=== PATIENT | female | born 1965 | race American Indian/Alaskan Native ===

== ENCOUNTER 2020-01-14 12:35 | Outpatient (CLI) | payer OTHER ==
--- NOTE | 2020-01-14 15:11 | Mammography Report ---
DIGITAL RIGHT DIAGNOSTIC MAMMOGRAM WITH CAD, WITHOUT TOMOSYNTHESIS 01/14/2020 INDICATION: Post stereotactic biopsy TECHNIQUE: Digital right mammographic imaging was performed. This examination was interpreted with the benefit of Computer-aided Detection analysis. COMPARISON: Screening mammogram 10/09/2019, right mammogram 12/10/2019 Breast Density: There are scattered areas of fibroglandular density. FINDINGS: The targeted grouped microcalcifications in the upper portion of the right breast are no lo nger seen and are noted in the specimen set. Clip is at the site. IMPRESSION: Good sampling of the targeted microcalcifications and appropriate clip placement Follow up recommendation: Per biopsy results Post biopsy imaging. A "normal" or negative report should not discourage follow up or biopsy of a clinically significant f inding. A written summary of these findings will be mailed to the patient. The patient will be entered into a mammography reporting system which will generate a reminder letter for the patient's next appointmen t at the appropriate interval. According to the [employer], yearly mammograms are recommended starting at age 40 and continuing as long as a woman is in good health. Breast MRI is recommended for women with an micheal roximately 20-25% or greater lifetime risk of breast cancer, including women with a strong family his tory of breast or ovarian cancer and women who have been treated for Hodgkin's disease. Signer Name: Kyle Calixto MD Signed: 01/14/2020 3:06 PM Workstation Name: [id number]
--- NOTE | 2020-01-14 16:05 | Mammography Report ---
STEREOTACTIC GUIDED VACUUM ASSISTED MAMMOTOME BIOPSY OF THE RIGHT BREAST INDICATION: Grouped right microcalcifications COMPARISON: Right diagnostic mammogram 12/10/2019 ANESTHESIA: Local DEVICE: Vacuum-assisted mammotome biopsy device, 8 gauge APPROACH: Superior CONSENT: Procedure was discussed in advance at length with the patient including possible risks and b enefits. The possibility of bleeding was discussed. Opportunity for questions was given. Patient is n ot on anticoagulant therapy and does not report pertinent allergies. Post procedural care was discuss ed. PROCEDURE: Timeout was performed. The grouped microcalcifications in the upper right breast were targ eted stereotactically. Using aseptic technique, needle was advanced to the appropriate depth and 5 co re biopsies were performed. Specimens were then radiographed revealing the targeted microcalcificatio ns were well represented in 2 of the core samples. A metallic clip was then left in place and an imag e was obtained for confirmation. The device was removed and pressure was held at the puncture site. S ite was secured. Specimens were sent to pathology for analysis. Patient was then sent for post biopsy mammogram which showed no remaining calcifications in the clip was at the site. Patient tolerated th e procedure well and left the department in good condition. IMMEDIATE COMPLICATIONS: None IMPRESSION: Successful stereotactic guided vacuum assisted mammotome biopsy of the right breast Signer Name: Kyle Calxito MD Signed: 01/14/2020 4:01 PM Workstation Name: [id number]
== END 2020-01-14 12:36 | disposition home or self-care (01) ==
LOC: SPVWC 12:35
PROVIDERS: ATTEND Surgery
DX: R92.0 Mammographic microcalcification found on diagnostic imaging of breast (principal); D24.1 Benign neoplasm of right breast; R92.8 Other abnormal and inconclusive findings on diagnostic imaging of breast
CPT/HCPCS: 88305; A4648

== ENCOUNTER 2020-07-24 08:15 | Outpatient (CLI) | payer OTHER ==
--- NOTE | 2020-07-24 09:05 | Mammography Report ---
DIGITAL DIAGNOSTIC MAMMOGRAM WITH CAD CONVENTIONAL, 07/24/2020 CLINICAL INFORMATION / INDICATION: Follow-up post right breast biopsy. ABNORMAL MAMMO R92.8 TECHNIQUE: Digital bilateral mammographic imaging was performed. This examination was interpreted with the benefit of Computer-aided Detection analysis. COMPARISON: 03/06/15 through 10/09/19. FINDINGS: Breast Density: There are scattered areas of fibroglandular density. No dominant mass, suspicious calcifications or new architectural distortion in either breast. There a re bilateral reduction changes. There is a new right biopsy clip with complete removal of the targeted calcifications since 10/09/19. No other change is seen. IMPRESSION: No mammographic evidence of malignancy. Follow up recommendation: Routine yearly BI-RADS Category 2: Benign. A "normal" or negative report should not discourage follow up or biopsy of a clinically significant f inding. A written summary of these findings will be mailed to the patient. The patient will be entered into a mammography reporting system which will generate a reminder letter for the patient's next appointmen t at the appropriate interval. According to the [employer], yearly mammograms are recommended starting at age 40 and continuing as long as a woman is in good health. Breast MRI is recommended for women with an micheal roximately 20-25% or greater lifetime risk of breast cancer, including women with a strong family his tory of breast or ovarian cancer and women who have been treated for Hodgkin's disease. Signer Name: Primo Vargas MD Signed: 07/24/2020 9:00 AM Workstation Name: [id number]
== END 2020-07-24 08:16 | disposition home or self-care (01) ==
LOC: SPVWC 08:15
PROVIDERS: ATTEND Surgery
DX: R92.8 Other abnormal and inconclusive findings on diagnostic imaging of breast (principal)
CPT/HCPCS: 77066